=== PATIENT | female | born 1970 ===

== ENCOUNTER 2017-04-09 01:53 | Emergency (ER) | payer MEDICAID ==
[2017-04-09 02:16] VITALS: BMI 34.5
[2017-04-09] MEDS ORDERED: Albuterol-Ipratrop 3 mg / 0.5 (3 ml) UD IH STA (02:23)
--- NOTE | 2017-04-09 02:23 | ED PDOC ---
Arrival/HPI - General Chief Complaint: Cough, Cold, Congestion Time Seen by Provider: 04/09/17 02:00 Historian: Patient - History of Present Illness Narrative History of Present Illness (Text): 04/09/17 02:23 Fiorella Encarnacion is a 47 year female, who past medical history includes COPD, presents to the Emergency department complaining of dry cough since yesterday evening. Patient reports symptoms with usual COPD symptoms but denies any significant relief after taking nebulizer treatments tonight.She is on oral steroids.States usually needs phenergan with codeine.Patient denies chest pain, headache, fever, chills, back pain, nausea, vomiting, abdominal pain, lower extremity pain/swelling, dizziness, lightheadedness or any other complaints. Time/Duration: 4-6 hours Symptom Onset: Gradual Symptom Course: Unchanged Activities at Onset: Light Context: Home Past Medical History - Provider Review Nursing Documentation Reviewed: Yes - Pulmonary Hx Chronic Obstructive Pulmonary Disease (COPD): Yes - Psychiatric Hx Substance Use: No Family/Social History - Physician Review Nursing Documentation Reviewed: Yes Family/Social History: Unknown Family HX Smoking Status: Never Smoked Hx Alcohol Use: No Hx Substance Use: No Allergies/Home Meds Allergies/Adverse Reactions: Allergies No Known Allergies Allergy (Verified 04/09/17 02:15) Home Medications: Home Meds Medication Instructions Recorded Confirmed Nebulizer [Aeroneb Go Nebulizer] 04/09/17 Promethazine [Phenergan Syrup] 04/09/17 predniSONE [predniSONE Tab] 20 mg PO BID 04/09/17 04/09/17 Review of Systems - Physician Review All systems were reviewed & negative as marked: Yes - Review of Systems Constitutional: Normal. absent: Fevers Eyes: Normal ENT: Normal. absent: Sore Throat Respiratory: Cough, Wheezing Cardiovascular: Normal. absent: Chest Pain, Orthopnea Gastrointestinal: Normal. absent: Abdominal Pain, Nausea, Vomiting Musculoskeletal: Normal. absent: Arthralgias, Back Pain, Neck Pain, Myalgias Skin: Normal Neurological: Normal. absent: Headache, Dizziness Endocrine: Normal. absent: Diaphoresis Psychiatric: Normal Physical Exam Vital Signs Reviewed: Yes Vital Signs Temp Pulse Resp BP Pulse Ox 04/09/17 02:19 98.2 F 99 H 18 149/85 95 Temperature: Afebrile Blood Pressure: Normal Pulse: Regular Respiratory Rate: Normal Appearance: Positive for: Well-Appearing, Non-Toxic, Comfortable Pain Distress: None Mental Status: Positive for: Alert and Oriented X 3 - Systems Exam Head: Present: Atraumatic, Normocephalic Pupils: Present: PERRL Extroacular Muscles: Present: EOMI Conjunctiva: Present: Normal Ears: Present: Normal, NORMAL TM, Normal Canal. No: Erythema, TM Bulging, Fluid , TM Perf Mouth: Present: Moist Mucous Membranes Pharnyx: Present: Normal. No: ERYTHEMA, EXUDATE, TONSILS ENLARGED, Peritonsilar Swelling, Uvular Deviation, Muffled/Hoarse Voice, Strider, Soft Palate/Uvular Edema Neck: Present: Normal Range of Motion Respiratory/Chest: Present: Wheezes (Slight end-expiratory wheeze). No: Respiratory Distress, Accessory Muscle Use Cardiovascular: Present: Regular Rate and Rhythm, Normal S1, S2. No: Murmurs Abdomen: Present: Normal Bowel Sounds. No: Tenderness, Distention, Peritoneal Signs Upper Extremity: Present: Normal Inspection. No: Cyanosis, Edema Lower Extremity: Present: Normal Inspection. No: Edema Neurological: Present: GCS=15, CN II-XII Intact, Speech Normal Skin: Present: Warm, Dry, Normal Color. No: Rashes, Diaphoretic Psychiatric: Present: Alert, Oriented x 3, Normal Insight, Normal Concentration Medical Decision Making ED Course and Treatment: 04/09/17 02:23 Impression: 47 year female presents to the Emergency department complaining of cough and wheezing. Differential Diagnosis included but are not limited to: COPD vs,. bronchitis vs. pneumonia Plan: -- Chest X-ray -- Duoneb -- Phenergan/Codeine Progress Notes: 04/09/17 03:15 Reviewed radiology, Chest X-ray shows no acute processes. 04/09/17 03:27 On reevaluation the patient feels better and is in no acute distress. I have discussed the results and plan with the patient, who expresses understanding. Patient given the opportunity to ask question, all questions were answered and there is agreement with the plan to discharge the patient home. Patient is stable for discharge. Patient was instructed to follow up with physician/clinic in 1-2 days or return if symptoms persist/worsen or new concerning symptoms arise. - RAD Interpretation Radiology Orders: 04/09/17 02:39 CHEST TWO VIEWS (PA/LAT) [RAD] Stat [place] Chief: ED Physician - Medication Orders Current Medication Orders: Azithromycin (Zithromax) 500 mg PO ONCE STA PRN Reason: Protocol Stop: 04/09/17 03:24 Discontinued Medications Albuterol/Ipratropium (Duoneb 3 Mg/0.5 Mg (3 Ml) Ud) 3 ml IH ONCE STA Stop: 04/09/17 02:24 Last Admin: 04/09/17 02:34 Dose: 3 ml Promethazine HCl/Codeine (Phenergan/Codeine Oral Syrup) 5 ml PO STAT STA Stop: 04/09/17 02:27 Last Admin: 04/09/17 02:34 Dose: 5 ml - Scribe Statement Tammie Finley under supervision of Tran Chew Provider Scribe Attestation: All medical record entries made by the Scribe were at my direction and personally dictated by me. I have reviewed the chart and agree that the record accurately reflects my personal performance of the history, physical exam, medical decision making, and the department course for this patient. I have also personally directed, reviewed, and agree with the discharge instructions and disposition. Disposition/Present on Arrival - Present on Arrival Any Indicators Present on Arrival: No History of DVT/PE: No History of Uncontrolled Diabetes: No Urinary Catheter: No History of Decub. Ulcer: No History Surgical Site Infection Following: None - Disposition Have Diagnosis and Disposition been Completed?: Yes Diagnosis: Bronchitis, COPD (chronic obstructive pulmonary disease) Disposition: HOME/ ROUTINE Disposition Time: 03:27 Patient Plan: Discharge Patient Problems: Current Active Problems Problem Status Onset Bronchitis Acute COPD (chronic obstructive pulmonary disease) Acute Condition: GOOD Discharge Instructions (ExitCare): Acute Bronchitis (ED), COPD (Chronic Obstructive Pulmonary Disease) (ED) Additional Instructions: Take meds as prescribed/follow up with your doctor this week Prescriptions: Promethazine/Codeine [Codeine/Promethazine 10 MG/5 Ml-6.25 MG/5 Ml] 5 ml PO Q6 PRN #8 oz PRN Reason: Cough Azithromycin [Zithromax] 250 mg PO DAILY #4 tab Referrals: Neena Montanez MD [Primary Care Provider] - Follow up with primary Forms: [employer] ([place])
[2017-04-09 02:24] VITALS: BP 149/85; PULSE 99; RESP 18; TEMP 98.2; O2SAT 95
[2017-04-09] MEDS ORDERED: Promethazine/Cod 6.25mg-10mg/5ml Syr UD PO STA (02:26)
--- NOTE | 2017-04-09 08:58 | RAD ---
HISTORY: cough COMPARISON: No prior. TECHNIQUE: Chest PA and lateral FINDINGS: LUNGS: No active pulmonary disease. PLEURA: No significant pleural effusion identified. No pneumothorax apparent. CARDIOVASCULAR: Normal. OSSEOUS STRUCTURES: No significant abnormalities. VISUALIZED UPPER ABDOMEN: Normal. OTHER FINDINGS: None. IMPRESSION: No active disease.
== END 2017-04-09 04:24 | disposition home or self-care (01) ==
LOC: ED 01:53
DX: J44.9 Chronic obstructive pulmonary disease, unspecified (principal)